=== PATIENT | female | born 1985 | race Caucasian/White ===

== ENCOUNTER 2018-12-02 18:51 | Emergency (ER) | payer SELFPAY ==
[2018-12-02 18:53] VITALS: BP 121/67; PULSE 99; RESP 16; TEMP 36.2; O2SAT 98; BMI 23.9
[2018-12-02 19:46] VITALS: PULSE 104; RESP 18
[2018-12-02] MEDS: Ipratropium/Albuterol Sulfate 3 ML AMPUL.NEB INHALATION (19:46)
--- NOTE | 2018-12-02 19:50 | RAD_ITS ---
STUDY: X-RAY CHEST REASON FOR EXAM: Female, 33 years old. Cough and flulike symptoms. TECHNIQUE: 2 views COMPARISON: None. FINDINGS: The lungs are clear and expanded. There is no demonstrated pleural abnormality. Normal size heart. Normal mediastinum and evelio. Normal visualized pulmonary arteries. Normal visualized aortic arch and descending thoracic aorta. Normal visualized thoracic spine. Normal visualized ribs, clavicles, and shoulders. There is no demonstrated abnormality of the visualized soft tissue structures of the upper abdomen. RAD/Chest PA and Lateral IMPRESSION: Normal x-ray examination of the chest. Electronically Signed: Charity Olivares MD at 20:06 EST , Service support ,
--- NOTE | 2018-12-02 20:05 | ED.VISSUMM ---
- ER Visit Summary Date of Service: 12/02/18 Chief Complaint: Cough History of Present Illness: The patient is a 33 F presents to the emergency department cough. Patient thinks that she might have influenza. States her symptoms began on Wednesday. She had a sore throat mild headache. She has also had fevers, chills, myalgias. She is controlled her fever with Tylenol or ibuprofen, but over the past 2 days, she had cough with some scant sputum. She is also had some chest tightness. She denies any history of underlying lung disease but she does smoke. She denies any recent sick contacts. She said no urinary symptoms. She is otherwise been in her normal state of health. Physical Examination: Vital signs reviewed General: Well-nourished, well-developed Head: Normocephalic, atraumatic Eyes: Pupils equal and reactive, extraocular muscles intact Neck, supple, no lymphadenopathy Heart: Regular rate and rhythm Respiratory: No distress, scant wheezing throughout Abdomen: Soft, nontender, nondistended, no peritoneal signs Back: Nontender Extremities: Nontender, no edema, no cords Skin: Normal color no rash Neuro: Alert and oriented, no focal or lateralizing deficits Test Results: [] Emergency Department Course and Treatment: The patient did have some wheezing in lung green. She is already outside the window for any treatment with Tamiflu. She does not have a fever here. She is not hypoxic. I did obtain a chest x-ray. This shows no focal infiltrative process. The patient was given a DuoNeb treatment and had improvement of aeration. My suspicion is that this is likely a viral bronchitis. I do not see a clear indication for antibiotics. I am going to treat her with prednisone and an inhaler. She is comfortable with this plan of care. Treatment Plan: [] Disposition: Discharge Impression: Viral bronchitis This note was generated with [employer] dictation software. It may contain incorrect words, spelling, and punctuation that were not noted in review of the chart prior to signing ED Disposition - Plan for ED Patient: Disposition: Home or Assisted Living Instructions: ED Upper Resp Infec No Abx Tx Prescriptions: RX: Albuterol Inhaler [Ventolin Hfa] 2 puff INHALATION Q4H PRN PRN #1 inhaler PRN Reason: Wheezing RX: Prednisone [Deltasone] 40 mg PO DAILY #10 tab Referrals: Maranda Chance MD [Primary Care Provider] -
[2018-12-02 20:24] VITALS: PULSE 105; RESP 16; O2SAT 98
== END 2018-12-02 20:25 | disposition home or self-care (01) ==
LOC: ED 20:07
PROVIDERS: Emergency Provider Emergency Medicine; Family Provider Family Medicine; PCP Family Medicine
DX: J20.8 Acute bronchitis due to other specified organisms (principal); F17.200 Nicotine dependence, unspecified, uncomplicated
CPT/HCPCS: 71046; 94640; 99283

== ENCOUNTER 2019-07-29 19:18 | Emergency (ER) | payer SELFPAY ==
[2019-07-20 09:44] VITALS: BMI 23.9
[2019-07-29 19:19] VITALS: BP 118/78; PULSE 95; RESP 16; TEMP 36.4; BMI 26.2
--- NOTE | 2019-07-29 20:22 | ED.VISSUMM ---
- ER Visit Summary Date of Service: 07/29/19 Chief Complaint: Left lower extremity pain History of Present Illness: The patient is a 34 F presenting with left lower extremity pain. Patient states this started a couple of days ago. She has pain to her left calf. She thought that she may have felt a knot earlier although she can no longer find this. She has no recent travel or recent surgeries. She does have a family history of her mother having a PE. No other PE/DVT risk factors. She is a smoker. She denies chest pain or shortness of breath. Physical Examination: Vitals are stable. Patient is afebrile. Alert no acute distress. HEENT exam is unremarkable. Neck is supple. Lungs are clear and equal bilaterally. Heart is regular rate and rhythm. Extremities mild left calf tenderness. No erythema or warmth. Normal distal pulses. Skin is warm and dry. No focal neurologic deficit. Remainder of exam is unremarkable. Emergency Department Course and Treatment: Venous Doppler is unavailable at this time of day. Patient was given order form for outpatient venous Doppler. Advised return to ED for worsening complaints. Advised to follow-up with primary care physician. Disposition: Discharge home Impression: Left calf pain This note was generated with [employer] dictation software. It may contain incorrect words, spelling, and punctuation that were not noted in review of the chart prior to signing ED Disposition - Plan for ED Patient: Referrals: Maranda Rincon DO [Primary Care Provider] -
[2019-07-29 20:25] VITALS: O2SAT 96
--- NOTE | 2019-07-29 20:25 | ED.DEP ---
ED Disposition - Plan for ED Patient: Instructions: Understanding Deep Vein Thrombosis Referrals: Maranda Rincon DO [Primary Care Provider] -
[2019-07-29 20:31] VITALS: BP 102/65; PULSE 91; RESP 18; O2SAT 99
== END 2019-07-29 20:32 | disposition home or self-care (01) ==
PROVIDERS: Emergency Provider Emergency Medicine; Family Provider Family Medicine; PCP Family Medicine
DX: M79.662 Pain in left lower leg (principal); F17.200 Nicotine dependence, unspecified, uncomplicated
CPT/HCPCS: 99283

== ENCOUNTER → 2019-07-30 10:43 | Outpatient (CLI) | payer SELFPAY ==
[2019-07-29 19:19] VITALS: BMI 26.2
--- NOTE | 2019-07-30 10:55 | VDLE_ITS ---
Reason For Study: PAIN Procedure LEFT Exam performed in department. GSV is normal. The exam was diagnostic. CFV is compressible, spontaneous, phasic, competent, and demonstrates normal augmentation. FV is compressible, spontaneous, phasic, competent and demonstrates normal augmentation. POP V is compressible, spontaneous, phasic, competent and demonstrates normal augmentation. T/P Trunk is compressible. PTV is compressible. LT PerV is compressible. Interpretation Summary Deep veins of the left lower extremity are patent and compressible segmentally. There is no evidence of left lower extremity deep vein thrombosis. Valvular competence appears intact within the proximal deep venous system on the left . The left great saphenous vein appears patent and compressible segmentally. Ordering Physician: Diana Andrade Performed By: Oliver Galarza RVT
== END ==
PROVIDERS: Family Provider Family Medicine; PCP Family Medicine; Visit Provider Emergency Medicine
DX: M79.605 Pain in left leg (principal)
CPT/HCPCS: 93971

== ENCOUNTER 2019-10-11 17:35 | Emergency (ER) | payer SELFPAY ==
[2019-10-11 17:35] VITALS: BP 133/84; PULSE 97; RESP 16; TEMP 36.2; O2SAT 98; BMI 26.5
--- NOTE | 2019-10-11 18:29 | ED.DCSUM_ITS ---
- ER Visit Summary Date of Service: 10/11/19 Chief Complaint: Swelling to right upper eyelid History of Present Illness: The patient is a 34 F who presents with swelling to her right upper eyelid that began today. Patient states she woke up with pain and swelling to her right upper eyelid. Patient states she has a history of styes and he is warm compresses. Patient states this did not help. Patient needs to make sure this is not conjunctivitis so that she can go to work tomorrow. Patient denies any visual changes. Patient denies any trauma or injury. Patient denies any discharge or drainage. Physical Examination: Vital signs are stable. Patient is afebrile. Patient is in no acute distress. Pupils are equal, round, and reactive to light bilaterally. Extraocular muscles are intact. Conjunctiva is clear. There is edema and tenderness over the right upper eyelid. There is no discharge or drainage. Anterior chamber was clear. There is no hyphema. There is no periorbital edema or erythema. Oral mucosa is pink and moist. Neck is supple. Trachea is midline. There is no JVD. Cranial nerves II through XII are intact. There are no focal motor or sensory deficits noted. Emergency Department Course and Treatment: Patient was instructed to use warm compresses to the area. Patient was advised that this is a stye and not conjunctivitis. Patient was given a prescription for erythromycin ophthalmic ointment. Patient was instructed to follow-up with her primary care physician in 5 to 7 days. Patient understood and was agreeable with the plan. All questions were answered. Disposition: Discharge home Impression: Hordeolum right upper eyelid This note was generated with [employer] dictation software. It may contain incorrect words, spelling, and punctuation that were not noted in review of the chart prior to signing ED Disposition - Plan for ED Patient: Disposition: Home or Assisted Living Diagnosis: Hordeolum of right upper eyelid Instructions: Sty Prescriptions: Erythromycin Ophthalmic 1 applic RIGHT EYE TID #1 tube Prescription Printed Referrals: Maranda Rincon DO [Primary Care Provider] - 5-7 Days
[2019-10-11 18:52] VITALS: BP 128/80; PULSE 85; RESP 18; O2SAT 97
== END 2019-10-11 18:54 | disposition home or self-care (01) ==
PROVIDERS: Emergency Provider Emergency Medicine; Family Provider Family Medicine; PCP Family Medicine
DX: H00.011 Hordeolum externum right upper eyelid (principal); F17.200 Nicotine dependence, unspecified, uncomplicated
CPT/HCPCS: 99284

== ENCOUNTER 2020-05-20 11:11 | Emergency (ER) | payer SELFPAY ==
[2020-05-20 11:12] VITALS: BP 131/90; PULSE 83; RESP 17; TEMP 36.4; O2SAT 100; BMI 27.8
--- NOTE | 2020-05-20 11:25 | CT_ITS ---
STUDY: CT BRAIN WITHOUT CONTRAST REASON FOR EXAM: Female, 34 years old. MIGRAINE X 3 DAYS RADIATION DOSAGE (If Supplied By Facility): CTDIvol = ( 60.81 ) mGy, DLP = ( 998.67 ) mGycm TECHNIQUE: Transaxial CT imaging of the brain was performed without administration of intravenous contrast material. Individualized dose optimization techniques were used for this CT. COMPARISON: Comparison is made with prior study dated 02/18/2016. FINDINGS: Normal soft tissue structures. Normal calvarium. Normal size ventricles and extra-axial spaces for the patient''s age. Normal white matter tracts of the cerebral hemispheres. Normal basal ganglia and thalami. Normal brainstem. Normal cerebellum. There is no intracranial hemorrhage. There are no findings of an acute ischemic infarction. There is almost complete opacification of the right sphenoid sinus. This is unchanged. CT/Brain/Head without Contrast IMPRESSION: Almost complete opacification of the right sphenoid sinus. Electronically Signed: Jacob Siu, at 13:12 EDT , Service support ,
--- NOTE | 2020-05-20 11:25 | ED.VIS.GEN ---
History of Present Illness Chief Complaint: Headache Informant: Patient Onset: Days - 4 days Context: Gradual Onset Timing: Waxes and wanes Current Severity: Mild Maximum Severity: Moderate Narrative: Patient presents with persistent migraine for the past 4 days. She states typically she will get a migraine seasonally, a bad one once a year. Typically it lasts less than a day and resolves. Patient states this headache is been ongoing for the past 4 days. She has not had URI symptoms. She has nausea but no vomiting. She does have light sensitivity. She denies any recent head injury. - Past Medical History (1) Panic disorder Status: Chronic (2) Migraines Status: Chronic (3) Acne Status: Chronic (4) PTSD (post-traumatic stress disorder) Status: Chronic Past Medical History - Allergies and Home Meds Allergies/Adverse Reactions: Allergies spironolactone Allergy (Verified 05/20/20 11:12) Rash Primary Care Physician: Maranda Rincon DO [Primary Care Provider] - Prior records reviewed: Yes Lives: With Family Smoking Status: Current every day smoker Review of Systems General: Denies: Chills, Fever Eyes: Denies: Visual changes - bilaterally ENT: Denies: Bilateral ear pain, Sore throat Cardiovascular: Denies: Chest pain Respiratory: Denies: Dyspnea Gastrointestinal: Reports: Nausea. Denies: Abdominal pain, Vomiting Musculoskeletal: Denies: Swelling, Extremity Pain Skin: Denies: Rash Neurological: Reports: Headache. Denies: Weakness, Parasthesia Hematologic: Denies: Easy bruising, Easy bleeding Allergy: Denies: Uticaria Physical Exam Vital Signs/Narrative: Vital Signs Temp Pulse Resp BP Pulse Ox 05/20/20 11:12 97.5 F L 83 17 131/90 H 100 Inital Vital Signs reviewed: Yes General: Well nourished, Well developed Head: Normocephalic ENT: Moist mucous membranes Neck: Supple Cardiovascular: Regular rate, Regular rhythm Respiratory: No distress, CTA bilaterally Abdomen: Soft, Nontender Extremities: Nontender Skin: Normal color Neurological: Alert, Oriented x3, Normal Strength, Normal Sensation Psychological: Normal affect Diagnostic/Tx/Re-eval Impressions Brain CT 05/20/20 11:25 IMPRESSION: Almost complete opacification of the right sphenoid sinus. Electronically Signed: Jacob Siu, at 13:12 EDT , Service support , 05/20/20 11:25 Brain/Head without Contrast [CT] Stat - Medical Decision Making Patient was given Toradol, Reglan, Benadryl, and IV fluids. On repeat evaluation she does feel much improved. Patient is on doxycycline regularly secondary to her acne. In light of this I feel that the fluid collection of the sphenoid sinus is likely viral if infectious at all. I do not feel she needs other antibiotics. ED Disposition - Plan for ED Patient: Disposition: Home or Assisted Living Diagnosis: Migraine Instructions: ED, Migraine (Classical) Referrals: Maranda Rincon, [Primary Care Provider] - As Needed
[2020-05-20] MEDS: 0.9% Normal Saline 1,000 ML 999 ML IV (12:26)
[2020-05-20] MEDS: Metoclopramide 10 MG/2 ML Vial IV (12:27)
[2020-05-20] MEDS: Ketorolac 30 MG/ML Syringe IV (12:27)
[2020-05-20] MEDS: DiphenhydrAMINE 50 MG/ML Syringe 25 MG IV (12:27)
[2020-05-20 13:48] VITALS: BP 116/86; PULSE 80; RESP 16; O2SAT 98
== END 2020-05-20 13:48 | disposition home or self-care (01) ==
PROVIDERS: Emergency Provider Emergency Medicine; PCP Family Medicine
DX: G43.909 Migraine, unspecified, not intractable, without status migrainosus (principal); F17.200 Nicotine dependence, unspecified, uncomplicated
CPT/HCPCS: 70450; 96374; 96375; 99283; J7030

== ENCOUNTER 2021-01-14 21:12 | Emergency (ER) | payer SELFPAY ==
[2021-01-14 21:13] VITALS: BP 136/77; PULSE 108; RESP 20; TEMP 36.2; O2SAT 97; BMI 31.1
--- NOTE | 2021-01-14 21:33 | ED.VIS.GEN ---
History of Present Illness Chief Complaint: Laceration Informant: Patient Onset: Today Current Severity: Moderate Maximum Severity: Severe Narrative: Patient presents with pain to the distal aspect of the left 4th finger. Patient states she was cutting with a pair of scissors when she cut the end of her left 4th finger. She is right-hand dominant. - Past Medical History (1) Migraines Status: Chronic (2) PTSD (post-traumatic stress disorder) Status: Chronic (3) Panic disorder Status: Chronic Past Medical History - Allergies and Home Meds Allergies/Adverse Reactions: Allergies spironolactone Allergy (Verified 05/20/20 11:12) Rash Primary Care Physician: Maranda Rincon DO [Primary Care Provider] - Prior records reviewed: Yes Lives: Spouse/ Significant Other Smoking Status: Current every day smoker Review of Systems General: Denies: Chills, Fever Eyes: Denies: Visual changes - bilaterally ENT: Denies: Bilateral ear pain Cardiovascular: Denies: Chest pain Respiratory: Denies: Dyspnea, Cough Gastrointestinal: Denies: Abdominal pain Musculoskeletal: Reports: Extremity Pain Skin: Reports: Wounds Neurological: Denies: Headache Hematologic: Denies: Easy bruising, Easy bleeding Allergy: Denies: Uticaria Physical Exam Vital Signs/Narrative: Vital Signs Temp Pulse Resp BP Pulse Ox 01/14/21 21:13 97.2 F L 108 H 20 H 136/77 H 97 Inital Vital Signs reviewed: Yes General: Well nourished, Well developed Head: Normocephalic ENT: Moist mucous membranes Neck: Supple Cardiovascular: Regular rate, Regular rhythm Respiratory: No distress, CTA bilaterally Abdomen: Soft Extremities: - - 2 x 4 mm skin avulsion to the distal tip of the left 4th finger. Mild bleeding. Full range of motion of the digit. Neurological: Alert, Oriented x3, Normal Strength, Normal Sensation Psychological: Normal affect Diagnostic/Tx/Re-eval - Medical Decision Making Tetanus update is provided. Digital block is performed with 2 cc of 1% lidocaine. Wound is cleansed and dressed with Surgifoam. On repeat evaluation bleeding has stopped. Dressing will be placed and patient be discharged home. ED Disposition - Plan for ED Patient: Disposition: Home or Assisted Living Diagnosis: Skin avulsion Instructions: ED Skin Avulsion Referrals: Maranda Rincon DO [Primary Care Provider] - As Needed
[2021-01-14] MEDS: Diphth,Pertuss(Acell),Tet Vac 0.5 ML Vial IM (21:36)
[2021-01-14] MEDS: Lidocaine 1% (20 ml mdv) 20 ML Vial INFILT (22:22)
[2021-01-14 22:32] VITALS: RESP 16
== END 2021-01-14 22:32 | disposition home or self-care (01) ==
PROVIDERS: Emergency Provider Emergency Medicine; PCP Family Medicine
DX: S61.209A Unspecified open wound of unspecified finger without damage to nail, initial encounter (principal); F17.200 Nicotine dependence, unspecified, uncomplicated; W26.9XXA Contact with unspecified sharp object(s), initial encounter
CPT/HCPCS: 90471; 90715; 99282

== ENCOUNTER 2021-11-08 18:55 | Emergency (ER) | payer SELFPAY ==
[2021-11-08 18:55] VITALS: BP 116/63; PULSE 105; RESP 16; TEMP 35.9; O2SAT 100; BMI 26.6
--- NOTE | 2021-11-08 19:08 | EDS_ITS ---
HPI HPI - URI History of Present Illness Chief Complaint: Sore Throat Informant: patient Onset/Context/Timing Onset: Yesterday Context: Gradual Onset Timing: Continuous Current Severity: Mild Maximum Severity: Mild Associated Symptoms Associated Symptoms: Positive for Nasal Congestion, Myalgias and Nonproductive cough; Negative for Nausea, Vomiting and Diarrhea Narrative Narrative: 36-year-old female history and past medical history. She is day 11 of COVID. Started developing a sore throat yesterday. Today she noticed white pustules on her tonsils. Able to swallow just sore throat. Had worse symptoms when her COVID started her nausea vomiting and fever and chills is since resolved. Prior similar symptoms: Yes Recent Illness/Hospitalization: No ROS ROS ED ROS Narrative Status post COVID. Now complaining of sore throat. Review of Systems ROS Unobtainable: Denies due to encephalopathy Constitutional Constitutional ED: Reports fever(s) Eyes Eyes: Denies change in vision ENT ENT ED: Reports rhinorrhea and sore throat; Denies ear pain Cardiovascular Cardiovascular: Denies chest pain Respiratory/Chest Respiratory/Chest: Denies cough or dyspnea Gastrointestinal Gastrointestinal: Denies abdominal pain, diarrhea, nausea or vomiting Genitourinary Genitourinary ED: Denies dysuria Musculoskeletal Musculoskeletal: Denies myalgias Integumentary Denies rash Neurologic Neurologic: Denies headache(s) Psychiatric Psychiatric: Denies depression Endocrine Endocrinology: Denies polyuria Hematologic/Lymphatic Hematologic/Lymphatic: Denies easy bruising Allergic/Immunologic Allergic/Immunologic ED: Denies urticaria PFSH PFSH Medical History Anemia Home Medications hydroxyzine pamoate 50 mg PO BID PRN PRN 05/20/20 [History Last Taken Unknown] amoxicillin 500 mg PO TID 7 Days #21 cap 11/08/21 [Rx Last Taken Unknown] Allergy/AdvReac Type Severity Reaction Status Date / Time spironolactone Allergy Rash Verified 05/20/20 11:12 Surgical History History of 3 sections History of cervical cerclage Hx of tubal ligation Social History Smoking Status: Current every day smoker tobacco type: cigarettes EXAM Physical Exam Narrative Exam Narrative: 36-year-old female no acute distress vital signs stable afebrile pulse ox 9% on room air no signs hypoxia. HEENT exam TMs normal bilaterally. Moist posterior pharynx and tongue. Tonsils red right has exudate. No javier tonsillar abscess. No trouble swallowing or breathing. No drooling. Neck nontender no lymphadenopathy. Trachea midline. Lungs clear to auscultation bilaterally. Heart regular rhythm no murmur. Abdomen soft nontender. Otherwise exam unremarkable. Const Vital Signs: 11/08/21 18:55 Temperature 96.6 F L Temperature Source Temporal Pulse Rate 105 H Respiratory Rate 16 Blood Pressure 116/63 Blood Pressure Mean 80 Pulse Ox 100 Oxygen Delivery Method Room Air Positive well nourished and well developed; Negative for obese, cachectic or contractures General Appearance ED: well developed and NAD; Negative for cachectic, contractures, cyanotic, diaphoretic or pallor Nutritional Appearance: Negative for cachectic or obese HEENT Reports TM's clear and moist mucous membranes HEENT Narrative: Posterior pharyngeal erythema with exudate on her right tonsil. No peritonsillar abscess. No stridor or drooling. No trouble swallowing. normocephalic and atraumatic External Ear: external ears normal External Auditory Canal: EAC's normal Tympanic Membrane ED: Yes TM's clear Eyes PERRL and EOMs intact bilaterally General Eye ED: Negative for pale conjunctiva or scleral icterus Neck no lymphadenopathy, supple, no meningeal signs and no JVD General: Negative for anterior neck swelling or lymphadenopathy Resp normal respiratory effort Auscultation: Negative for rales, rhonchi or wheezes Cardio S1 normal heart sound, S2 normal heart sound and no murmurs Rate: regular rate Rhythm: regular rhythm GI non-tender, non-distended and no masses Inspection: Negative for abdominal distention Auscultation: normoactive bowel sounds Palpation: soft; Negative for tender or guarding Back/Spine no CVA tenderness and normal ROM General Back: Negative for CVA tenderness Cervical Spine: Negative for cervical spine tenderness Thoracic Spine / Upper Back: Negative for thoracic spinal tenderness Extremity normal to inspection and full ROM General Extremety ED: Negative for cyanosis or tenderness General Extremity: Negative for cyanosis Neuro oriented x3 Sensorium / Orientation: oriented to person, oriented to place and oriented to time; Negative for orientation impaired, lethargic or stuporous Motor Exam: strength 5/5 throughout Psych mental status grossly normal Mood & Affect: Negative for depressed or tearful Skin General Skin Exam: Negative for jaundice or pallor Lesions: no lesions Rashes: no rashes MDM MDM MDM Narrative Medical decision making narrative: 36-year-old with sore throat and right tonsillar exudate. To be treated for strep throat. Dose of amoxicillin here. Then placed on amoxicillin. Warm salt water gargling and Motrin and Tylenol for pain. Follow-up if not improving. Discharge Plan Triage Chief Complaint: Sore Throat ED Provider: Shaq Campos Dx/Rx/DC Orders Clinical Impression: Strep throat Instructions: ED Pharyngitis, Strep (Presumed) Prescriptions: New amoxicillin 500 mg capsule 500 mg PO TID 7 Days Qty: 21 RF: 0 No Action hydroxyzine pamoate 50 MG capsule 50 mg PO BID PRN PRN (Reason: Anxiety) RF: 0 Primary Care Provider: Maranda Rincon Referrals: Maranda Rincon, [Primary Care Provider] - 1 Week if not improving Activity Restrictions/Additional Instructions: Amoxicillin 1 pill 3 times a day till gone. Warm salt water gargling. Motrin and Tylenol for pain. Plenty of fluids and rest. Follow-up with your primary care provider if not improving. Disposition Disposition: Home, Self Care
[2021-11-08] MEDS: AMOXICILLIN 500 MG CAPSULE PO (19:21)
== END 2021-11-08 19:23 | disposition home or self-care (01) ==
LOC: ED 19:22
PROVIDERS: Emergency Provider Emergency Medicine; PCP Family Medicine; Visit Provider Emergency Medicine
DX: J02.0 Streptococcal pharyngitis (principal); F17.210 Nicotine dependence, cigarettes, uncomplicated; Z79.899 Other long term (current) drug therapy
CPT/HCPCS: 99283

== ENCOUNTER 2022-01-10 11:34 | Emergency (ER) | payer SELFPAY ==
[2022-01-10 11:36] VITALS: BP 130/86; PULSE 76; RESP 14; TEMP 35.7; O2SAT 100; BMI 26.6
[2022-01-10 11:51] VITALS: BMI 26.5
--- NOTE | 2022-01-10 11:51 | EX.ED.DYSGE1 ---
HPI History of Present Illness Chief Complaint: Neuro S/Sx Detail of Chief Complaint: Headache and paresthesias and right groin abscess Informant: patient Narrative Narrative: Patient presents to the emergency department with complaint of a headache that start about an hour and a half ago. Patient states that she developed a sharp pain in the left side of her head and then developed some intermittent numbness to the left side of her face as well as her left arm. Her paresthesias are resolved currently. Patient also states that her headache is minimal and rates it a 2 out of 10. She does have history of migraines and she has had numbness to the left side of her face before associated with her headaches. She also has a history of carpal tunnel so she was a little concerned about possibility of stroke based on the paresthesias. Patient also has history of anxiety and she is not sure if she had a panic attack. Also she tells me she has a abscess to her right groin that she has had for about 5 years and intermittently has it injected by shipyard painter helper. Patient's had intermittent drainage from this. She denies any fevers. Patient was concerned that the infection may have spread systemically and was causing the headache and the paresthesias. Prior similar symptoms: Yes PFSH PFSH Medical History Anemia Home Medications hydroxyzine pamoate 50 mg PO BID PRN PRN 05/20/20 [History Last Taken Unknown] cephalexin 500 mg PO Q6 #40 capsule 01/10/22 [Rx Last Taken Unknown] fluoxetine [Prozac] 20 mg PO DAILY 01/10/22 [History Last Taken Unknown] Allergy/AdvReac Type Severity Reaction Status Date / Time amoxicillin Allergy Rash Verified 01/10/22 11:36 spironolactone Allergy Rash Verified 05/20/20 11:12 Surgical History History of 3 sections History of cervical cerclage Hx of tubal ligation Social History Smoking Status: Current every day smoker tobacco type: cigarettes ROS ROS ED Constitutional Constitutional ED: Reports systems reviewed and no addt'l complaints, except as documented; Denies body ache(s), change in weight or chills Eyes Eyes: Denies acute decrease in peripheral vision, change in vision, double vision or loss of vision ENT ENT ED: Reports none; Denies ear pain, lip swelling, loss taste/smell, neck pain, otalgia or sore throat Cardiovascular Cardiovascular: Reports none; Denies abdominal pain, chest pain with activity, leg edema, lightheadedness, palpitations, rapid heart rate or syncope Respiratory/Chest Respiratory/Chest: Reports none; Denies change in mental status, dry cough, dyspnea, hemoptysis, shortness of breath at rest or shortness of breath with exertion Gastrointestinal Gastrointestinal: Reports none; Denies abdominal pain, change in stool character, diarrhea, hematemesis, hematochezia, melena, rectal bleeding or vomiting Genitourinary Genitourinary ED: Reports none; Denies abdominal discomfort, anuria, dysuria, genital pain or polyuria Musculoskeletal Musculoskeletal: Reports none; Denies arthralgias, back pain, difficulty walking, extremity pain, muscle weakness or myalgias Integumentary Reports none and abscess; Denies rash Neurologic Neurologic: Reports none, headache(s) and paresthesias; Denies abnormal gait, confusion, focal weakness, frequent falls, loss of vision, numbness, radicular pain, vertigo or weakness Psychiatric Psychiatric: Reports systems reviewed and no addt'l complaints, except as documented and none; Denies behavioral changes, confusion, difficulty concentrating, hallucinations, suicidal ideation, tactile hallucinations or visual hallucinations Endocrine Endocrinology: Denies none, cold intolerance, excessive sweating, fatigue or heat intolerance Hematologic/Lymphatic Hematologic/Lymphatic: Reports none; Denies anemia, easy bleeding or easy bruising Allergic/Immunologic Allergic/Immunologic ED: Denies as per HPI, none, lip swelling, mouth swelling, throat swelling, tongue swelling or hives EXAM Physical Exam Const Vital Signs: 01/10/22 11:36 Temperature 96.2 F L Temperature Source Temporal Pulse Rate 76 Respiratory Rate 14 Blood Pressure 130/86 H Blood Pressure Mean 100 Pulse Ox 100 Oxygen Delivery Method Room Air Positive well nourished and well developed General Appearance ED: well developed and NAD HEENT Reports TM's clear and moist mucous membranes normocephalic and atraumatic; Negative for trauma or tenderness Tympanic Membrane ED: Yes TM's clear Eyes PERRL and EOMs intact bilaterally General Eye ED: Negative for pale conjunctiva or scleral icterus Neck no lymphadenopathy, supple and no JVD General: Negative for tenderness Chest Wall inspection of chest normal and palpation of chest normal Chest: Negative for tenderness Resp normal respiratory effort and clear to auscultation bilaterally Effort and Inspection: Negative for respiratory distress or pain with movement Auscultation: Negative for rhonchi, wheezes or diminished lung sounds Cardio regular rate, regular rhythm, S1 normal heart sound, S2 normal heart sound and no murmurs Peripheral Pulses: pulses 2+ throughout GI normal to inspection, nondistended, normoactive bowel sounds, soft to palpation, non-tender, non-distended and no masses Back/Spine no CVA tenderness and no thoracic nor lumbar tenderness Extremity normal to inspection General Extremety ED: Negative for edema General Extremity: Negative for edema Neuro oriented x3, CN's II-XII intact bilaterally, no sensory deficits noted and gait normal Neuro Narrative: Finger-nose and heel jiménez testing within normal limits, negative Romberg, negative pronator drift, fundi benign. Sensorium / Orientation: awake, alert, oriented to person, oriented to place and oriented to time Motor Exam: strength 5/5 throughout and strength abnormal Psych mental status grossly normal Skin no rashes or lesions noted and no wounds Skin Narrative: Evaluation of her right groin does reveal a small 2 cm area of induration over the lateral aspect of the labia majora it is slightly tender to palpation. There are no cellulitic changes and there is no fluctuance palpated. There is no drainage. MDM MDM MDM Narrative Medical decision making narrative: Patient is now anything for her headache currently as it is minimal. Patient was given a dose of Keflex in the emergency department. I do not feel there is an indication for incision and drainage of the suspect chronic abscess. Patient advised to follow-up with her shipyard painter helper. She is to return if worsening headache, difficulty with balance or speech, weakness to the extremities or persistent paresthesias or condition should worsen anyway. I suspect her paresthesias likely related to complex migraine which she has had before. I do not feel patient is having a stroke. Discharge Plan Triage Chief Complaint: Neuro S/Sx ED Provider: Lynette Velasquez Dx/Rx/DC Orders Clinical Impression: Migraine, Arm paresthesia, left, Abscess Instructions: ED Abscess Antibiotic Treatment Only, ED, Migraine (Classical) Prescriptions: New cephalexin [cephalexin] 500 MG capsule 500 mg PO Q6 Qty: 40 RF: 0 No Action hydroxyzine pamoate 50 MG capsule 50 mg PO BID PRN PRN (Reason: Anxiety) RF: 0 fluoxetine [Prozac] 20 mg Capsule 20 mg PO DAILY RF: 0 Primary Care Provider: Maranda Rincon Referrals: Maranda Rincon DO [Primary Care Provider] - 3-5 Days Disposition Disposition: Home, Self Care
[2022-01-10] MEDS: Cephalexin 250 MG Capsule 500 MG PO (12:05)
== END 2022-01-10 12:28 | disposition home or self-care (01) ==
PROVIDERS: Emergency Provider Emergency Medicine; PCP Family Medicine; Visit Provider Emergency Medicine
DX: G43.909 Migraine, unspecified, not intractable, without status migrainosus (principal); R20.2 Paresthesia of skin; L02.214 Cutaneous abscess of groin; F17.210 Nicotine dependence, cigarettes, uncomplicated; Z79.899 Other long term (current) drug therapy
CPT/HCPCS: 99283

== ENCOUNTER 2023-02-28 10:26 | Emergency (ER) | payer BC, SELFPAY ==
[2023-02-28 10:27] VITALS: BP 130/94; PULSE 90; RESP 18; TEMP 36.4; O2SAT 100; BMI 30.1
--- NOTE | 2023-02-28 10:36 | EKG12_ITS ---
Test Reason : Blood Pressure : / mmHG Vent. Rate : 097 BPM Atrial Rate : 097 BPM P-R Int : 128 ms QRS Dur : 080 ms QT Int : 328 ms P-R-T Axes : 037 056 017 degrees QTc Int : 416 ms Normal sinus rhythm Normal ECG Confirmed by NUPUR YANG, EDUARDO ([id number]), legal editor VITALY CAT ([id number]) on 03/02/2023 10:34:29 AM Referred By: Confirmed By:EDUARDO ESPITIA MD
--- NOTE | 2023-02-28 10:39 | EX.ED.VIS.PS ---
HPI HPI - Psych History of Present Illness Chief Complaint: Anxiety Narrative Narrative: 37-year-old female past medical history of bipolar disorder, PTSD, states that she started Lamictal 4 days ago because her psychiatrist started her on something for depression. She had not taken anything for panic attacks and not really had any in the last 9 months. She increased her Lamictal dose today, now states that she is having a panic attack that is lasting over 2 hours. She describes heart palpitations, and her hearing everything feels loud. She states that she thinks that she is returning to baseline, but as soon as she moves her heart will start racing and she starts feeling panic. She had her dropped her off today. She denies any chest pain or other symptoms but this feels very similar to her previous panic attacks. PFSH PFS Medical History Anemia Home Medications hydroxyzine pamoate 50 mg capsule 50 mg PO BID PRN PRN Anxiety 05/20/20 [History Last Taken Unknown] cephalexin 500 mg capsule 500 mg PO Q6 #40 CAPSULES 01/10/22 [Rx Last Taken Unknown] fluoxetine 20 mg capsule (Prozac) 20 mg PO DAILY 01/10/22 [History Last Taken Unknown] Allergy/AdvReac Type Severity Reaction Status Date / Time amoxicillin Allergy Rash Verified 02/28/23 10:29 spironolactone Allergy Rash Verified 02/28/23 10:29 Surgical History History of 3 sections History of cervical cerclage Hx of tubal ligation Social History Smoking Status: Current every day smoker tobacco type: cigarettes ROS ROS ED ROS Narrative Constitutional: No fever, no chills. HEENT: No sore throat. No neck pain. No loss of vision. No rhinorrhea. Cardiovascular: No chest pain. No palpitations. No pedal edema. Respiratory: No cough, no shortness of breath. Abdominal: No abdominal pain. No nausea. No vomiting. Genitourinary: No dysuria. No hematuria. Musculoskeletal: No myalgias. No arthralgias. Neurologic: No headaches. No dizziness. No lightheadedness. Skin: No rash. No change in color. Psychiatric: No depression. Positive anxiety and panic attacks. EXAM Physical Exam Narrative Exam Narrative: Afebrile. Vital signs noted. HEENT: Normocephalic. Atraumatic. PERRL, EOMI. Neck soft and supple. No point tenderness or step off. Cardiovascular: Regular rate and rhythm. No murmurs, rubs, or gallops appreciated. Respiratory: No tachypnea. Lungs clear to auscultation bilaterally. Gastrointestinal: Abdomen soft, nontender, with normoactive bowel sounds. No rebound or guarding. Neurological: Awake. Alert. Nonfocal, nonlateralizing. Skin: No rash. Normal color. No pallor. Musculoskeletal: No pedal edema. Full range of motion extremities. Psychiatric: No hallucinations, no suicidal ideation, positive anxiety, tearful on examination. Const Vital Signs: 02/28/23 10:27 Temperature 97.5 F L Temperature Source Temporal Pulse Rate 90 Respiratory Rate 18 Blood Pressure 130/94 H Blood Pressure Mean 106 Pulse Ox 100 Oxygen Delivery Method Room Air MDM MDM MDM Narrative Medical decision making narrative: Patient was administered Ativan 1 mg intra muscularly for her panic attack. I will obtain an EKG, but she does have a normal pulse. I do feel that this is mainly anxiety driven. She does already have a prescription for hydroxyzine in the EMR, but she states that she has not taken anything recently. I told her that I can give her 1 dose of a benzodiazepine here but I could write her for another prescription of hydroxyzine. EKG was obtained and interpreted by myself as normal sinus rhythm at 97 bpm without ectopy or acute ST changes. No STEMI. After Ativan, she is much more calm and feels improved, but tired. I feel she can be discharged safely home with follow-up. When asked about her Vistaril, she states that she still has some but was not sure if she could take it while she was taking Lamictal. She has follow-up with her psychiatrist on Wednesday, 2 days from now. She can even call them tomorrow. Return instructions to the emergency department were reviewed. Disposition is discharged home in stable condition. History & Record Review Discussion w/independent historian: Patient Additional record(s) reviewed:: Prior ED visit Discharge Plan Triage Chief Complaint: Anxiety ED Provider: Hasmukh Mckeon Dx/Rx/DC Orders Clinical Impression: Panic disorder, Palpitations, Anxiety Instructions: ED Palpitations, ED Panic Attack Prescriptions: No Action hydroxyzine pamoate 50 MG capsule 50 mg PO BID PRN PRN (Reason: Anxiety) fluoxetine [Prozac] 20 mg Capsule 20 mg PO DAILY cephalexin [cephalexin] 500 MG capsule 500 mg PO Q6 Qty: 40 0RF Primary Care Provider: Maranda Rincon Referrals: Maranda Rincon DO [Primary Care Provider] - Activity Restrictions/Additional Instructions: Follow-up with your psychiatrist as scheduled on Wednesday. Take your Vistaril as previously prescribed, and as needed Disposition Disposition: Home, Self Care
[2023-02-28] MEDS: LORazepam 2 MG/ML Syringe 1 MG IM (10:45)
[2023-02-28 12:12] VITALS: BP 112/74; PULSE 87; RESP 16; O2SAT 98
== END 2023-02-28 12:13 | disposition home or self-care (01) ==
PROVIDERS: Emergency Provider Emergency Medicine; PCP Family Medicine; Visit Provider Emergency Medicine
DX: F41.0 Panic disorder [episodic paroxysmal anxiety] (principal); R00.2 Palpitations; F17.210 Nicotine dependence, cigarettes, uncomplicated
CPT/HCPCS: 93005; 96372; 99282

== ENCOUNTER 2023-05-18 00:09 | Emergency (ER) | payer BC, SELFPAY ==
[2023-05-18 00:10] VITALS: BP 130/82; PULSE 80; RESP 17; TEMP 36.8; O2SAT 98; BMI 29.5
[2023-05-18 00:13] VITALS: BP 130/82; PULSE 80; RESP 17; TEMP 36.8; O2SAT 98
--- NOTE | 2023-05-18 00:43 | EDS_ITS ---
HPI History of Present Illness Chief Complaint: Abscess Informant: patient Narrative Narrative: Patient is a 37-year-old female with past medical history of migraines who states that she receives recurrent injections from her software programmer secondary to Bartholin gland cysts. She states that in the last 2 days the area has become more swollen and painful and she has noticed purulent discharge from it. She states that she cannot get into see her physician for approximately 1 month and with concern that it is infected and may need drain presents for evaluation. PFSH PFSH Medical History Anemia Home Medications hydroxyzine pamoate 50 mg capsule 50 mg PO BID PRN PRN Anxiety 05/20/20 [History Last Taken Unknown] fluoxetine 20 mg capsule (Prozac) 20 mg PO DAILY 01/10/22 [History Last Taken Unknown] doxycycline hyclate 100 mg tablet 100 mg PO BID 7 days #14 tabs 05/18/23 [Rx La st Taken Unknown] oxycodone-acetaminophen 5 mg-325 mg tablet (Endocet) 1 tab PO Q6H PRN pain 3 days #12 tabs 05/18/23 [Rx Last Taken Unknown] Allergy/AdvReac Type Severity Reaction Status Date / Time amoxicillin Allergy Rash Verified 05/18/23 00:10 spironolactone Allergy Rash Verified 05/18/23 00:10 Surgical History History of 3 sections History of cervical cerclage Hx of tubal ligation Social History Smoking Status: Current every day smoker tobacco type: cigarettes ROS ROS ED Constitutional Constitutional ED: Denies chills or fever(s) ENT ENT ED: Denies sore throat Cardiovascular Cardiovascular: Denies chest pain Respiratory/Chest Respiratory/Chest: Denies cough or dyspnea Gastrointestinal Gastrointestinal: Denies abdominal pain, diarrhea, nausea or vomiting Genitourinary Genitourinary ED: Reports other Details: Positive genital lesion and pain ; Denies dysuria Musculoskeletal Musculoskeletal: Denies myalgias Integumentary Denies rash Neurologic Neurologic: Denies headache(s) Hematologic/Lymphatic Hematologic/Lymphatic: Denies easy bleeding or easy bruising EXAM Physical Exam Const Vital Signs: 05/18/23 00:10 05/18/23 00:13 Temperature 98.2 F 98.2 F Temperature Source Oral Temporal Pulse Rate 80 80 Respiratory Rate 17 17 Blood Pressure 130/82 H 130/82 H Blood Pressure Mean 98 98 Pulse Ox 98 98 Oxygen Delivery Method Room Air Positive well nourished and well developed General Appearance ED: well developed HEENT HEENT Narrative: Normocephalic atraumatic Eyes PERRL and EOMs intact bilaterally Neck supple Resp normal respiratory effort and clear to auscultation bilaterally Cardio regular rate and regular rhythm GI normal to inspection, nondistended, normoactive bowel sounds, non-tender, non- distended and no masses Auscultation: normoactive bowel sounds Palpation: soft Narrative: Along the outer aspect of the right upper labia there is a 1 x 2 cm area of erythema and induration consistent with Bartholin gland abscess. There is no active drainage noted. No lymphangitic streaking. 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 However with the increased pain and reported discharge there is concern now for secondary abscess. There is also potential Cathleen's gangrene but without crepitance or derangement to her vitals concern for this is less likely and therefore do not feel there is need for imaging or laboratory studies. The patient had the area incised and drained as documented below. Following this she was started on antibiotics secondary to infectious process but as there is no signs of systemic infection is otherwise safe for discharge Patient had the area cleaned with chlorhexidine. It was anesthetized using 6 mL of 1% lidocaine with epinephrine in local fashion. A #11 blade was used to make a 1 cm incision over top the area of induration. A moderate amount of blood and purulent material was expressed. Loculations were dissected with a needle martínez. The wound was copiously irrigated with normal saline. Patient tolerated the procedure well without complication. History & Record Review Discussion w/independent historian: Patient Discharge Plan Triage Chief Complaint: Abscess ED Provider: Freddie Ernst Dx/Rx/DC Orders Clinical Impression: Abscess of right Bartholin's gland, Migraines Instructions: Bartholin Cyst and Abscess Prescriptions: New doxycycline hyclate 100 mg tablet 100 mg PO BID 7 Days Qty: 14 0RF oxycodone-acetaminophen [Endocet] 5-325 mg tablet 1 tab PO Q6H PRN (Reason: pain) 3 Days Qty: 12 0RF No Action hydroxyzine pamoate 50 MG capsule 50 mg PO BID PRN PRN (Reason: Anxiety) fluoxetine [Prozac] 20 mg Capsule 20 mg PO DAILY Primary Care Provider: Maranda Rincon Referrals: Maranda Rincon DO [Primary Care Provider] - Disposition Disposition: Home, Self Care Discharge Date/Time: 05/18/23 00:53
== END 2023-05-18 00:53 | disposition home or self-care (01) ==
PROVIDERS: Emergency Provider Emergency Medicine; PCP Family Medicine; Visit Provider Emergency Medicine
DX: N75.1 Abscess of Bartholin's gland (principal); G43.909 Migraine, unspecified, not intractable, without status migrainosus; F17.210 Nicotine dependence, cigarettes, uncomplicated; N75.0 Cyst of Bartholin's gland
CPT/HCPCS: 56420; 99282

== ENCOUNTER 2024-06-30 10:05 | Emergency (ER) | payer BC, SELFPAY ==
[2024-06-30 10:06] VITALS: BP 116/97; PULSE 99; RESP 18; TEMP 36.6; O2SAT 99; BMI 31.9
--- NOTE | 2024-06-30 10:36 | EDS_ITS ---
HPI History of Present Illness Chief Complaint: Allergic Reaction Narrative Narrative: Patient is a 38-year-old female who presents to the emergency department the chief complaint of bee sting to her forehead. Patient states that earlier this morning approximately 30 minutes prior to arrival to the hospital she noted that she was stung in the forehead. States that she does not have a history of anaphylaxis to bee stings. States that she is having some pain in her forehead and noted that she had been icing it. Denied any other medications taken prior to coming here. Patient states that she wanted to be evaluated just to make sure that nothing was wrong. She has no complaints feels fine otherwise. [facility] Medical History Pneumonia Murmur Hives Anemia Home Medications ?Medication ?Instructions ?Recorded ?Last Taken ?Type citalopram 10 mg tablet 10 mg PO QDAY #14 tabs 05/17/24 Unknown Rx fluoxetine 20 mg tablet 20 mg PO DAILY #30 tabs 05/17/24 Unknown Rx hydroxyzine HCl 10 mg tablet mg PO 05/17/24 Unknown History Allergy/AdvReac Type Severity Reaction Status Date / Time amoxicillin Allergy Rash Verified 06/30/24 10:06 spironolactone Allergy Rash Verified 06/30/24 10:06 Family History Other Alcoholism Anemia Anxiety Asthma Breast cancer Cervical cancer Depression Diabetes Mental disorder Myocardial infarction Psychiatric care Suicide attempt Surgical History Hx of tubal ligation History of cervical cerclage History of 3 sections Social History Smoking Status: Heavy Smoker (>10/day) alcohol intake: never substance use type: does not use frequency: 3-4 times per week ROS ROS ED ROS Narrative Constitutional: Denies any headaches, fevers, chills Eyes: Denies change in vision double vision blurry vision Cardiovascular: Denies chest pain Respiratory: Denies coughing wheezing shortness of breath Abdomen: She states that she is nauseous but notes that she is always nauseous as she is currently on Ozempic this is not new for her denies abdominal pain vomiting diarrhea : Denies any urinary symptoms Neurological: Denies numbness, weakness, tingling Skin: Complains of bee sting to the forehead EXAM Physical Exam Narrative Exam Narrative: General: Patient lying in bed rest comfortably did not appear to be in acute distress Head: Atraumatic, normocephalic Eyes: PERRL bilateral, EOMI bilateral, no conjunctival injection noted Neck: Soft, supple, trachea midline Cardiovascular: Regular in rhythm no murmurs gallops rubs noted Respiratory: Clear to auscultation bilaterally no rales rhonchi wheeze noted Abdomen: Soft, nondistended, no tenderness to palpation Extremities: +5/5 strength noted in the bilateral upper and lower extremities, no pedal edema noted on exam Neurological: Patient follow commands knew that she was at [facility] year is 2023 Skin: Warm, dry, patient has evidence of a bee sting to her right forehead with some mild swelling noted. No petechia no purpura no sloughing of the skin noted. No evidence of hives on her body. Const Vital Signs: 06/30/24 10:06 Temperature 97.8 F Temperature Source Temporal Pulse Rate 99 Respiratory Rate 18 Blood Pressure 116/97 H Blood Pressure Mean 103 Pulse Ox 99 Oxygen Delivery Method Room Air MDM MDM MDM Narrative Medical decision making narrative: Patient is a 38-year-old female who presented to the emergency department chief complaint of bee sting of the forehead. Patient does not have any other evidence of hives or any other concerns for anaphylactoid reaction to her bee sting. She is nontoxic in appearance. The patient was offered Benadryl and ibuprofen states that if she needs this she will take this at home and does not want a thing here currently. Patient was advised to return with worsening symptoms or other concerns. She would like to go home at this point in time. All question concerns answered she is discharged home in stable condition. She was advised to follow-up with her primary care physician outpatient setting. 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 Follow-up your primary care physician outpatient setting. Return with worsening symptoms or other concerns. Print Language: Setswana Disposition Disposition: Home, Self Care
== END 2024-06-30 11:16 | disposition home or self-care (01) ==
LOC: ED 11:01
PROVIDERS: Emergency Provider Emergency Medicine; PCP Nurse Practitioner Primary Care; Visit Provider Emergency Medicine
DX: T63.441A Toxic effect of venom of bees, accidental (unintentional), initial encounter (principal); Z88.0 Allergy status to penicillin; F17.200 Nicotine dependence, unspecified, uncomplicated
CPT/HCPCS: 99282